=== PATIENT | female | born 1930 | race Caucasian/White ===

== ENCOUNTER 2018-07-25 23:15 | Inpatient (IN) | payer MEDICARE, OTHER ==
[2018-07-26] MEDS: ALBUTEROL 0.083% (NEB) 2.5 MG/3 ML AMP HHN ×3 (00:22→19:24)
[2018-07-26] MEDS: IPRATROPIUM (NEB) 0.5 MG/2.5 ML AMP INH (00:22)
[2018-07-26 00:34] LABS: ADD MAN DIFF? NO
[2018-07-26 00:37] LABS: WHITE BLOOD COUNT 6.2 10^3/ul (4.8-10.8)
[2018-07-26 00:37] LABS: BASOPHILS % 0.3 % (0.0-2.0); EOSINOPHILS # 0.4 10^3/ul (0.0-0.5); EOSINOPHILS % 6.5 % (0.0-7.0); HEMATOCRIT 39.7 % (37.0-47.0); HEMOGLOBIN 12.4 g/dl (12.0-16.0); LYMPHOCYTES # 0.7 10^3/ul (0.8-2.9); MEAN CORPUSCULAR HEMOGLOBIN 29.9 pg (29.0-33.0); MEAN CORPUSCULAR HGB CONC 31.2 g/dl (32.0-37.0); MEAN CORPUSCULAR VOLUME 95.7 fl (82.0-101.0); MONOCYTE # 0.7 10^3/ul (0.3-0.9); MONOCYTES % 10.5 % (0.0-11.0); NEUTROPHIL # 4.4 10^3/ul (1.6-7.5); NEUTROPHILS % 71.5 % (39.0-77.0); PLATELET COUNT 129 10^3/UL (140-415); RED BLOOD COUNT 4.15 10^6/ul (4.20-5.40); RED CELL DISTRIBUTION WIDTH 13.2 % (11.5-14.5)
[2018-07-26 00:47] LABS: ALANINE AMINOTRANSFERASE 16 IU/L (13-69); ALBUMIN 4.1 g/dl (3.3-4.9); ALBUMIN/GLOBULIN RATIO 1.28; ALKALINE PHOSPHATASE 58 IU/L (42-121); ANION GAP 8 (5-13); ASPARTATE AMINO TRANSFERASE 22 IU/L (15-46); BILIRUBIN,INDIRECT 0.4 mg/dl (0-1.1); BILIRUBIN,TOTAL 0.4 mg/dl (0.2-1.3); BLOOD UREA NITROGEN 21 mg/dl (7-20); CALCIUM 9.6 mg/dl (8.4-10.2); CARBON DIOXIDE 25 mmol/L (21-31); CHLORIDE 107 mmol/L (97-110); CREATININE 1.05 mg/dl (0.44-1.00); GLUCOSE 144 mg/dl (70-220); POTASSIUM 4.9 mmol/L (3.5-5.1); SODIUM 140 mmol/L (135-144); TOTAL PROTEIN 7.3 g/dl (6.1-8.1)
[2018-07-26 00:58] LABS: B-TYPE NATRIURETIC PEPTIDE 177 PG/ML (0-450); TROPONIN-I < 0.012 ng/ml (0.000-0.120)
[2018-07-26 02:47] LABS: LACTIC ACID 0.7 mmol/L (0.5-2.0)
[2018-07-26] MEDS: METHYLPREDNISOLONE 125 MG INJ IM (03:00)
[2018-07-26 05:02] LABS: LACTIC ACID 0.8 mmol/L (0.5-2.0)
[2018-07-26] MEDS ORDERED: ACETAMINOPHEN 325 MG TAB PO (06:00)
[2018-07-26] MEDS ORDERED: ONDANSETRON 4 MG INJ IV (06:00)
[2018-07-26] MEDS ORDERED: HYDROCODONE/APAP (5/325) TAB PO ×2 (06:00)
[2018-07-26] MEDS ORDERED: NACL 0.9% 3 ML SYG IV (06:00)
[2018-07-26] MEDS: SPIRONOLACTONE 25 MG TAB PO (08:46)
[2018-07-26] MEDS: METHYLPREDNISOLONE 125 MG INJ IV ×2 (08:46→21:48)
[2018-07-26] MEDS: BENAZEPRIL 10 MG TAB PO (08:46)
[2018-07-26] MEDS: ASPIRIN 81 MG TAB PO (08:47)
[2018-07-26] MEDS: HEPARIN 5,000 UNIT/1 ML VIAL SC ×2 (08:47→20:35)
[2018-07-26] MEDS: MOMETASONE 0.24 GM INHALER INH ×2 (14:56→21:48)
[2018-07-26] MEDS ORDERED: GLUCOSE GEL 15 GRAM TUBE PO ×2 (16:00)
[2018-07-26] MEDS ORDERED: DEXTROSE 50% 50 ML SYRINGE IV ×2 (16:00)
[2018-07-26] MEDS ORDERED: GLUCAGON 1 MG INJ IM (16:00)
[2018-07-26] MEDS ORDERED: GLUCOSE GEL 15 GRAM TUBE BUCCAL (16:00)
[2018-07-26] MEDS: INSULIN ASPART [NOVOLOG] 3 ML PEN SC (17:46)
[2018-07-26] MEDS: FAMOTIDINE 20 MG TAB PO (20:35)
[2018-07-26] MEDS: ATORVASTATIN 10 MG TAB PO (20:35)
[2018-07-26] MEDS ORDERED: NON-FORMULARY/PATIENT OWN MED (Simvastatin 20 MG) PO (21:00)
[2018-07-26] MEDS: INSULIN GLARGINE [LANTus] (100 UNITS/ML) SYG SC (21:48)
[2018-07-27] MEDS: ALBUTEROL 0.083% (NEB) 2.5 MG/3 ML AMP HHN ×4 (02:00→23:32)
[2018-07-27] MEDS: METHYLPREDNISOLONE 125 MG INJ IV ×3 (04:40→20:14)
[2018-07-27] MEDS: ALBUTEROL/IPRATROPIUM (NEB) 3 ML AMP HHN (06:05)
[2018-07-27 06:09] LABS: ADD MAN DIFF? NO
[2018-07-27 06:16] LABS: WHITE BLOOD COUNT 8.3 10^3/ul (4.8-10.8)
[2018-07-27 06:16] LABS: BASOPHILS % 0.2 % (0.0-2.0); HEMATOCRIT 40.3 % (37.0-47.0); HEMOGLOBIN 12.5 g/dl (12.0-16.0); LYMPHOCYTES # 1.2 10^3/ul (0.8-2.9); LYMPHOCYTES % 13.9 % (15.0-51.0); MEAN CORPUSCULAR HEMOGLOBIN 29.4 pg (29.0-33.0); MEAN CORPUSCULAR VOLUME 94.8 fl (82.0-101.0); MEAN PLATELET VOLUME 12.3 fl (7.4-10.4); MONOCYTE # 0.3 10^3/ul (0.3-0.9); MONOCYTES % 3.5 % (0.0-11.0); NEUTROPHIL # 6.8 10^3/ul (1.6-7.5); PLATELET COUNT 137 10^3/UL (140-415); RED BLOOD COUNT 4.25 10^6/ul (4.20-5.40); RED CELL DISTRIBUTION WIDTH 13.4 % (11.5-14.5)
[2018-07-27 06:36] LABS: INR 1.03; PROTIME 13.6 Sec (11.9-14.9); PT RATIO 1.1
[2018-07-27 06:40] LABS: PHOSPHORUS 3.9 mg/dl (2.5-4.9)
[2018-07-27 06:45] LABS: CREATINE KINASE 178 IU/L (23-200)
[2018-07-27 06:48] LABS: HEMOGLOBIN A1C 6.8 % (0-5.9)
[2018-07-27 06:50] LABS: TROPONIN-I < 0.012 ng/ml (0.000-0.120)
[2018-07-27 06:54] LABS: ALANINE AMINOTRANSFERASE 17 IU/L (13-69); ALBUMIN 3.9 g/dl (3.3-4.9); ALBUMIN/GLOBULIN RATIO 1.25; ALKALINE PHOSPHATASE 55 IU/L (42-121); ANION GAP 9 (5-13); ASPARTATE AMINO TRANSFERASE 21 IU/L (15-46); BILIRUBIN,INDIRECT 0.3 mg/dl (0-1.1); BILIRUBIN,TOTAL 0.3 mg/dl (0.2-1.3); BLOOD UREA NITROGEN 29 mg/dl (7-20); CALCIUM 9.4 mg/dl (8.4-10.2); CARBON DIOXIDE 25 mmol/L (21-31); CHLORIDE 106 mmol/L (97-110); CHOL/HDL RATIO 4.8 RATIO; CHOLESTEROL 183 mg/dl (100-200); CREATININE 1.01 mg/dl (0.44-1.00); GLUCOSE 304 mg/dl (70-220); HDL CHOLESTEROL 38 mg/dl (33-92); LDL CHOLESTEROL,CALCULATED 120 mg/dl; MAGNESIUM 1.7 mg/dl (1.7-2.5); POTASSIUM 4.9 mmol/L (3.5-5.1); SODIUM 140 mmol/L (135-144); TRIGLYCERIDES 126 mg/dl (0-149)
[2018-07-27 06:56] LABS: CK INDEX 2.3; CK-MB 4.11 ng/ml (0.0-2.4); TROPONIN-I < 0.012 ng/ml (0.000-0.120)
[2018-07-27 07:17] LABS: THYROID STIMULATING HORMONE 0.717 MIU/L (0.465-4.680)
[2018-07-27] MEDS: INSULIN ASPART [NOVOLOG] 3 ML PEN SC ×3 (07:44→17:40)
[2018-07-27] MEDS: MOMETASONE 0.24 GM INHALER INH ×2 (08:25→20:14)
[2018-07-27] MEDS: ASPIRIN 81 MG TAB PO (08:27)
[2018-07-27] MEDS: BENAZEPRIL 10 MG TAB PO (08:27)
[2018-07-27] MEDS: HEPARIN 5,000 UNIT/1 ML VIAL SC ×2 (08:28→20:14)
[2018-07-27] MEDS: ISOSORBIDE MONONITRATE(SR)30 MG TAB PO (10:26)
[2018-07-27] MEDS: FUROSEMIDE 40 MG INJ IV (10:27)
[2018-07-27 12:47] LABS: CREATINE KINASE 206 IU/L (23-200)
[2018-07-27 13:00] LABS: CK INDEX 2.5; CK-MB 5.19 ng/ml (0.0-2.4); TROPONIN-I < 0.012 ng/ml (0.000-0.120)
[2018-07-27] MEDS ORDERED: SENNA/DOCUSATE NA (8.6MG/50MG) TAB PO (17:00)
[2018-07-27] MEDS: FUROSEMIDE 20 MG INJ IV (17:35)
[2018-07-27 18:24] LABS: CREATINE KINASE 203 IU/L (23-200)
[2018-07-27 18:36] LABS: CK INDEX 2.5; CK-MB 4.99 ng/ml (0.0-2.4); TROPONIN-I < 0.012 ng/ml (0.000-0.120)
[2018-07-27] MEDS: ATORVASTATIN 10 MG TAB PO (20:12)
[2018-07-27] MEDS: FAMOTIDINE 20 MG TAB PO (20:12)
[2018-07-27] MEDS: INSULIN GLARGINE [LANTus] (100 UNITS/ML) SYG SC (20:16)
[2018-07-28 06:23] LABS: ADD MAN DIFF? NO
[2018-07-28 06:30] LABS: BASOPHILS % 0.1 % (0.0-2.0); HEMATOCRIT 38.3 % (37.0-47.0); HEMOGLOBIN 11.9 g/dl (12.0-16.0); LYMPHOCYTES # 1.4 10^3/ul (0.8-2.9); LYMPHOCYTES % 10.8 % (15.0-51.0); MEAN CORPUSCULAR HEMOGLOBIN 29.5 pg (29.0-33.0); MEAN CORPUSCULAR HGB CONC 31.1 g/dl (32.0-37.0); MEAN CORPUSCULAR VOLUME 94.8 fl (82.0-101.0); MEAN PLATELET VOLUME 12.4 fl (7.4-10.4); MONOCYTE # 0.9 10^3/ul (0.3-0.9); MONOCYTES % 6.7 % (0.0-11.0); NEUTROPHIL # 10.7 10^3/ul (1.6-7.5); NEUTROPHILS % 81.9 % (39.0-77.0); PLATELET COUNT 139 10^3/UL (140-415); RED BLOOD COUNT 4.04 10^6/ul (4.20-5.40); RED CELL DISTRIBUTION WIDTH 13.2 % (11.5-14.5)
[2018-07-28 07:04] LABS: ANION GAP 9 (5-13); BLOOD UREA NITROGEN 61 mg/dl (7-20); CALCIUM 9.5 mg/dl (8.4-10.2); CARBON DIOXIDE 28 mmol/L (21-31); CHLORIDE 103 mmol/L (97-110); CREATININE 1.66 mg/dl (0.44-1.00); GLUCOSE 249 mg/dl (70-220); SODIUM 140 mmol/L (135-144)
[2018-07-28 07:05] LABS: PHOSPHORUS 4.2 mg/dl (2.5-4.9)
[2018-07-28 07:05] LABS: MAGNESIUM 1.9 mg/dl (1.7-2.5)
[2018-07-28 07:18] LABS: POTASSIUM 5.2 mmol/L (3.5-5.1)
[2018-07-28] MEDS: INSULIN ASPART [NOVOLOG] 3 ML PEN SC ×3 (08:01→17:21)
[2018-07-28] MEDS: MOMETASONE 0.24 GM INHALER INH ×2 (08:32→20:28)
[2018-07-28] MEDS: METHYLPREDNISOLONE 125 MG INJ IV (08:34)
[2018-07-28] MEDS: ASPIRIN 81 MG TAB PO (08:35)
[2018-07-28] MEDS: ISOSORBIDE MONONITRATE(SR)30 MG TAB PO (08:35)
[2018-07-28] MEDS: BENAZEPRIL 10 MG TAB PO (08:36)
[2018-07-28] MEDS: HEPARIN 5,000 UNIT/1 ML VIAL SC ×2 (08:37→20:28)
[2018-07-28] MEDS: ALBUTEROL 0.083% (NEB) 2.5 MG/3 ML AMP HHN ×2 (09:42→15:33)
[2018-07-28] MEDS: FUROSEMIDE 20 MG INJ IV (12:15)
[2018-07-28] MEDS: MAGNESIUM SULFATE 2 GM/50 ML 50 ML IVPB (16:15)
[2018-07-28] MEDS: METOPROLOL 25 MG TAB PO (20:28)
[2018-07-28] MEDS: FAMOTIDINE 20 MG TAB PO (20:28)
[2018-07-28] MEDS: ATORVASTATIN 10 MG TAB PO (20:28)
[2018-07-28] MEDS: ALBUTEROL/IPRATROPIUM (NEB) 3 ML AMP HHN (20:34)
[2018-07-28] MEDS: INSULIN GLARGINE [LANTus] (100 UNITS/ML) SYG SC (20:50)
[2018-07-29] MEDS: ALBUTEROL/IPRATROPIUM (NEB) 3 ML AMP HHN ×6 (01:16→21:12)
[2018-07-29 06:27] LABS: ADD MAN DIFF? NO
[2018-07-29 06:37] LABS: BASOPHILS % 0.1 % (0.0-2.0); HEMATOCRIT 36.4 % (37.0-47.0); HEMOGLOBIN 11.6 g/dl (12.0-16.0); LYMPHOCYTES # 1.4 10^3/ul (0.8-2.9); LYMPHOCYTES % 11.8 % (15.0-51.0); MEAN CORPUSCULAR HEMOGLOBIN 29.7 pg (29.0-33.0); MEAN CORPUSCULAR HGB CONC 31.9 g/dl (32.0-37.0); MEAN CORPUSCULAR VOLUME 93.1 fl (82.0-101.0); MEAN PLATELET VOLUME 12.4 fl (7.4-10.4); MONOCYTE # 0.9 10^3/ul (0.3-0.9); MONOCYTES % 7.2 % (0.0-11.0); NEUTROPHIL # 9.7 10^3/ul (1.6-7.5); NEUTROPHILS % 80.4 % (39.0-77.0); PLATELET COUNT 146 10^3/UL (140-415); RED BLOOD COUNT 3.91 10^6/ul (4.20-5.40); RED CELL DISTRIBUTION WIDTH 13.3 % (11.5-14.5)
[2018-07-29 06:37] LABS: WHITE BLOOD COUNT 12.1 10^3/ul (4.8-10.8)
[2018-07-29 07:17] LABS: ANION GAP 9 (5-13); BLOOD UREA NITROGEN 62 mg/dl (7-20); CALCIUM 9.3 mg/dl (8.4-10.2); CARBON DIOXIDE 27 mmol/L (21-31); CHLORIDE 102 mmol/L (97-110); CREATININE 1.35 mg/dl (0.44-1.00); GLUCOSE 236 mg/dl (70-220); POTASSIUM 4.9 mmol/L (3.5-5.1); SODIUM 138 mmol/L (135-144)
[2018-07-29 07:18] LABS: MAGNESIUM 2.3 mg/dl (1.7-2.5)
[2018-07-29] MEDS: INSULIN ASPART [NOVOLOG] 3 ML PEN SC ×3 (07:51→17:30)
[2018-07-29] MEDS: ISOSORBIDE MONONITRATE(SR)30 MG TAB PO (08:14)
[2018-07-29] MEDS: ASPIRIN 81 MG TAB PO (08:14)
[2018-07-29] MEDS: METOPROLOL 25 MG TAB PO ×2 (08:15→20:21)
[2018-07-29] MEDS: MOMETASONE 0.24 GM INHALER INH ×2 (08:16→20:22)
[2018-07-29] MEDS: HEPARIN 5,000 UNIT/1 ML VIAL SC ×2 (09:00→20:22)
[2018-07-29] MEDS: FUROSEMIDE 20 MG INJ IV ×2 (12:00→18:31)
[2018-07-29] MEDS: FAMOTIDINE 20 MG TAB PO (20:21)
[2018-07-29] MEDS: ATORVASTATIN 10 MG TAB PO (20:21)
[2018-07-29] MEDS: INSULIN GLARGINE [LANTus] (100 UNITS/ML) SYG SC (20:59)
[2018-07-30] MEDS: ALBUTEROL/IPRATROPIUM (NEB) 3 ML AMP HHN ×6 (01:27→20:33)
[2018-07-30 05:18] LABS: ADD MAN DIFF? NO
[2018-07-30 05:26] LABS: WHITE BLOOD COUNT 8.2 10^3/ul (4.8-10.8)
[2018-07-30 05:26] LABS: BASOPHILS % 0.1 % (0.0-2.0); EOSINOPHILS # 0.2 10^3/ul (0.0-0.5); EOSINOPHILS % 2.6 % (0.0-7.0); HEMATOCRIT 36.4 % (37.0-47.0); HEMOGLOBIN 11.5 g/dl (12.0-16.0); LYMPHOCYTES # 2.2 10^3/ul (0.8-2.9); LYMPHOCYTES % 27.1 % (15.0-51.0); MEAN CORPUSCULAR HEMOGLOBIN 29.8 pg (29.0-33.0); MEAN CORPUSCULAR HGB CONC 31.6 g/dl (32.0-37.0); MEAN CORPUSCULAR VOLUME 94.3 fl (82.0-101.0); MEAN PLATELET VOLUME 11.9 fl (7.4-10.4); MONOCYTES % 12.5 % (0.0-11.0); NEUTROPHIL # 4.7 10^3/ul (1.6-7.5); NEUTROPHILS % 57.1 % (39.0-77.0); PLATELET COUNT 132 10^3/UL (140-415); RED BLOOD COUNT 3.86 10^6/ul (4.20-5.40); RED CELL DISTRIBUTION WIDTH 13.3 % (11.5-14.5)
[2018-07-30 05:55] LABS: ANION GAP 6 (5-13); BLOOD UREA NITROGEN 59 mg/dl (7-20); CALCIUM 9.1 mg/dl (8.4-10.2); CARBON DIOXIDE 32 mmol/L (21-31); CHLORIDE 104 mmol/L (97-110); GLUCOSE 62 mg/dl (70-220); POTASSIUM 4.5 mmol/L (3.5-5.1); SODIUM 142 mmol/L (135-144)
[2018-07-30 05:57] LABS: MAGNESIUM 2.1 mg/dl (1.7-2.5)
[2018-07-30] MEDS: INSULIN ASPART [NOVOLOG] 3 ML PEN SC ×3 (07:00→17:38)
[2018-07-30] MEDS: HEPARIN 5,000 UNIT/1 ML VIAL SC ×2 (09:00→20:17)
[2018-07-30] MEDS: ASPIRIN 81 MG TAB PO (09:58)
[2018-07-30] MEDS: METOPROLOL 25 MG TAB PO ×2 (09:58→20:24)
[2018-07-30] MEDS: ISOSORBIDE MONONITRATE(SR)30 MG TAB PO (09:58)
[2018-07-30] MEDS: BARIUM SULFATE 135 ML (E-Z HD) PO (11:13)
[2018-07-30] MEDS: MOMETASONE 0.24 GM INHALER INH ×2 (13:54→21:05)
[2018-07-30] MEDS: AZITHROMYCIN 250 MG TAB PO (14:31)
[2018-07-30] MEDS: ATORVASTATIN 10 MG TAB PO (20:17)
[2018-07-30] MEDS: FAMOTIDINE 20 MG TAB PO (20:19)
[2018-07-30] MEDS: INSULIN GLARGINE [LANTus] (100 UNITS/ML) SYG SC (20:37)
[2018-07-30] MEDS: METHYLPREDNISOLONE 40 MG INJ IV (21:05)
[2018-07-31] MEDS: ALBUTEROL/IPRATROPIUM (NEB) 3 ML AMP HHN ×4 (01:22→12:37)
[2018-07-31] MEDS: METHYLPREDNISOLONE 40 MG INJ IV ×2 (05:46→13:57)
[2018-07-31 06:21] LABS: ADD MAN DIFF? NO
[2018-07-31 06:25] LABS: BASOPHILS % 0.3 % (0.0-2.0); HEMATOCRIT 39.2 % (37.0-47.0); HEMOGLOBIN 12.3 g/dl (12.0-16.0); LYMPHOCYTES # 1.1 10^3/ul (0.8-2.9); LYMPHOCYTES % 13.7 % (15.0-51.0); MEAN CORPUSCULAR HEMOGLOBIN 29.7 pg (29.0-33.0); MEAN CORPUSCULAR HGB CONC 31.4 g/dl (32.0-37.0); MEAN CORPUSCULAR VOLUME 94.7 fl (82.0-101.0); MEAN PLATELET VOLUME 12.2 fl (7.4-10.4); MONOCYTE # 0.2 10^3/ul (0.3-0.9); MONOCYTES % 2.1 % (0.0-11.0); NEUTROPHIL # 6.4 10^3/ul (1.6-7.5); NEUTROPHILS % 83.1 % (39.0-77.0); PLATELET COUNT 152 10^3/UL (140-415); RED BLOOD COUNT 4.14 10^6/ul (4.20-5.40); RED CELL DISTRIBUTION WIDTH 13.2 % (11.5-14.5)
[2018-07-31 06:25] LABS: WHITE BLOOD COUNT 7.6 10^3/ul (4.8-10.8)
[2018-07-31 06:56] LABS: MAGNESIUM 2.1 mg/dl (1.7-2.5)
[2018-07-31 06:56] LABS: PHOSPHORUS 4.1 mg/dl (2.5-4.9)
[2018-07-31 07:00] LABS: ANION GAP 7 (5-13); BLOOD UREA NITROGEN 49 mg/dl (7-20); CALCIUM 9.5 mg/dl (8.4-10.2); CARBON DIOXIDE 29 mmol/L (21-31); CHLORIDE 103 mmol/L (97-110); CREATININE 1.28 mg/dl (0.44-1.00); GLUCOSE 286 mg/dl (70-220); SODIUM 139 mmol/L (135-144)
[2018-07-31 07:12] LABS: POTASSIUM 5.8 mmol/L (3.5-5.1)
[2018-07-31] MEDS: INSULIN ASPART [NOVOLOG] 3 ML PEN SC ×3 (08:08→12:07)
[2018-07-31] MEDS: AZITHROMYCIN 250 MG TAB PO (08:15)
[2018-07-31] MEDS: ASPIRIN 81 MG TAB PO (08:15)
[2018-07-31] MEDS: FUROSEMIDE 20 MG TAB PO (08:16)
[2018-07-31] MEDS: ISOSORBIDE MONONITRATE(SR)30 MG TAB PO (08:16)
[2018-07-31] MEDS: METOPROLOL 25 MG TAB PO (08:17)
[2018-07-31] MEDS: HEPARIN 5,000 UNIT/1 ML VIAL SC (08:17)
[2018-07-31] MEDS: MOMETASONE 0.24 GM INHALER INH (08:18)
[2018-07-31] MEDS: SODIUM POLYSTYRENE 15 GM KIT (POWDER + SORBITOL) PO ×3 (08:30→10:14)
[2018-07-31 10:07] LABS: POTASSIUM 5.5 mmol/L (3.5-5.1)
[2018-07-31 13:25] LABS: POTASSIUM 5.2 mmol/L (3.5-5.1)
== END 2018-07-31 15:57 | disposition home or self-care (01) | DRG 291 ==
LOC: 6WM 07-28 20:11 → WCC 23:15 → 6WM 07-26 02:41
DX: I11.0 Hypertensive heart disease with heart failure (principal); J96.01 Acute respiratory failure with hypoxia; K85.90 Acute pancreatitis without necrosis or infection, unspecified; Z68.41 Body mass index [BMI] 40.0-44.9, adult; N17.9 Acute kidney failure, unspecified; J44.0 Chronic obstructive pulmonary disease with (acute) lower respiratory infection; J44.1 Chronic obstructive pulmonary disease with (acute) exacerbation; I50.33 Acute on chronic diastolic (congestive) heart failure; E66.9 Obesity, unspecified; J20.9 Acute bronchitis, unspecified; Z71.3 Dietary counseling and surveillance; D69.6 Thrombocytopenia, unspecified; E10.9 Type 1 diabetes mellitus without complications; E88.81 Metabolic syndrome and other insulin resistance; I27.81 Cor pulmonale (chronic); E78.5 Hyperlipidemia, unspecified; I25.10 Atherosclerotic heart disease of native coronary artery without angina pectoris; Z79.4 Long term (current) use of insulin; Z79.01 Long term (current) use of anticoagulants
CPT/HCPCS: 71045; 71250; 74230; 80048; 80053; 80061; 82550; 82553; 82962; 83036; 83605; 83735; 83880; 84100; 84132; 84443; 84484; 85025; 85610; 87040-91; 92610; 92611; 93005; 93306; 94640; 94664

== ENCOUNTER 2018-08-02 23:04 | Emergency (ER) | payer MEDICARE, OTHER | END 2018-08-03 00:14 | disposition home or self-care (01) | LOC: E/R 08-03 00:14 | DX: T44.7X1A Poisoning by beta-adrenoreceptor antagonists, accidental (unintentional), initial encounter (principal); I11.0 Hypertensive heart disease with heart failure; I50.9 Heart failure, unspecified; E11.9 Type 2 diabetes mellitus without complications; J44.9 Chronic obstructive pulmonary disease, unspecified; Z79.4 Long term (current) use of insulin; Z79.82 Long term (current) use of aspirin | CPT/HCPCS: 93005; 99283-25 ==

== ENCOUNTER 2018-11-08 03:34 | Observation (INO) | payer MEDICARE, OTHER ==
[2018-11-08] MEDS ORDERED: DILTIAZEM 25 MG INJ (03:50)
[2018-11-08 03:59] LABS: ADD MAN DIFF? NO
[2018-11-08] MEDS: SOD CHLORIDE 0.9% 500 ML IV (04:05)
[2018-11-08 04:06] LABS: WHITE BLOOD COUNT 6.3 10^3/ul (4.8-10.8)
[2018-11-08 04:06] LABS: BASOPHILS % 0.5 % (0.0-2.0); EOSINOPHILS # 0.5 10^3/ul (0.0-0.5); EOSINOPHILS % 8.4 % (0.0-7.0); HEMATOCRIT 38.7 % (37.0-47.0); HEMOGLOBIN 12.1 g/dl (12.0-16.0); LYMPHOCYTES # 2.1 10^3/ul (0.8-2.9); LYMPHOCYTES % 32.7 % (15.0-51.0); MEAN CORPUSCULAR HGB CONC 31.3 g/dl (32.0-37.0); MEAN CORPUSCULAR VOLUME 95.8 fl (82.0-101.0); MEAN PLATELET VOLUME 11.8 fl (7.4-10.4); MONOCYTE # 0.8 10^3/ul (0.3-0.9); MONOCYTES % 12.2 % (0.0-11.0); NEUTROPHIL # 2.9 10^3/ul (1.6-7.5); PLATELET COUNT 131 10^3/UL (140-415); RED BLOOD COUNT 4.04 10^6/ul (4.20-5.40); RED CELL DISTRIBUTION WIDTH 13.6 % (11.5-14.5)
[2018-11-08] MEDS: DILTIAZEM 25 MG INJ IV ×2 (04:06→04:33)
[2018-11-08 04:23] LABS: ALANINE AMINOTRANSFERASE 22 IU/L (13-69); ALBUMIN 3.8 g/dl (3.3-4.9); ALBUMIN/GLOBULIN RATIO 1.18; ALKALINE PHOSPHATASE 63 IU/L (42-121); ANION GAP 7 (5-13); ASPARTATE AMINO TRANSFERASE 27 IU/L (15-46); BILIRUBIN,INDIRECT 0.4 mg/dl (0-1.1); BILIRUBIN,TOTAL 0.4 mg/dl (0.2-1.3); BLOOD UREA NITROGEN 33 mg/dl (7-20); CALCIUM 9.4 mg/dl (8.4-10.2); CARBON DIOXIDE 30 mmol/L (21-31); CHLORIDE 106 mmol/L (97-110); CREATININE 1.19 mg/dl (0.44-1.00); GLUCOSE 147 mg/dl (70-220); POTASSIUM 3.5 mmol/L (3.5-5.1); SODIUM 143 mmol/L (135-144)
[2018-11-08 04:35] LABS: B-TYPE NATRIURETIC PEPTIDE 195 PG/ML (0-450); TROPONIN-I 0.028 ng/ml (0.000-0.120)
[2018-11-08] MEDS ORDERED: DOCUSATE SODIUM 100 MG CAP PO (05:00)
[2018-11-08] MEDS ORDERED: NACL 0.9% 3 ML SYG IV (05:00)
[2018-11-08] MEDS ORDERED: ACETAMINOPHEN 325 MG TAB PO (05:00)
[2018-11-08] MEDS ORDERED: NITROGLYCERIN (SL) 0.4 MG TAB SL (05:00)
[2018-11-08] MEDS ORDERED: morphine 2 MG INJ IV (05:00)
[2018-11-08] MEDS ORDERED: ONDANSETRON 4 MG INJ IV (05:00)
[2018-11-08] MEDS: POTASSIUM CHLORIDE (SR) 20 MEQ TAB PO (05:05)
[2018-11-08] MEDS: MAGNESIUM SULFATE 2 GM/50 ML 50 ML IVPB (05:05)
[2018-11-08] MEDS: DIPHENHYDRAMINE 50 MG INJ IV (05:28)
[2018-11-08] MEDS ORDERED: BISACODYL (EC) 5 MG TAB PO (06:00)
[2018-11-08 06:14] LABS: MAGNESIUM 1.9 mg/dl (1.7-2.5)
[2018-11-08] MEDS: METOPROLOL 25 MG TAB PO ×2 (06:32→18:45)
[2018-11-08] MEDS: INSULIN REGULAR, HUMAN 100 UNIT/1 ML 3ML VIAL SC (06:48)
[2018-11-08] MEDS: INSULIN ASPART [NOVOLOG] 3 ML PEN SC ×5 (07:55→21:00)
[2018-11-08] MEDS ORDERED: DILTIAZEM 60 MG TAB PO (08:00)
[2018-11-08] MEDS ORDERED: ISOSORBIDE MONONITRATE(SR)30 MG TAB PO (09:00)
[2018-11-08] MEDS ORDERED: SPIRONOLACTONE 25 MG TAB PO (09:00)
[2018-11-08] MEDS ORDERED: ASPIRIN (EC) 81 MG TAB PO (09:00)
[2018-11-08] MEDS: MOMETASONE 0.24 GM INHALER INH ×2 (09:00→23:32)
[2018-11-08] MEDS ORDERED: ASPIRIN 81 MG TAB PO (09:00)
[2018-11-08] MEDS ORDERED: BUDESONIDE INHALATION (09:00)
[2018-11-08] MEDS: METOPROLOL 5 MG INJ IV (09:03)
[2018-11-08] MEDS: DOCUSATE SODIUM 100 MG CAP PO (09:04)
[2018-11-08] MEDS: APIXABAN 5 MG TABLET PO (09:04)
[2018-11-08 09:26] LABS: CREATINE KINASE 427 IU/L (23-200)
[2018-11-08 09:38] LABS: CK INDEX 5.6
[2018-11-08] MEDS ORDERED: AMIODARONE 900 MG in DEXTROSE 5% 482 ML IV (10:30)
[2018-11-08 11:52] LABS: INR 1.07; PT RATIO 1.1
[2018-11-08 11:53] LABS: PARTIAL THROMBOPLASTIN TIME 33.6 Sec (23.0-35.0)
[2018-11-08] MEDS: AMIODARONE 150MG/D5W BOLUS 100 ML IV (12:30)
[2018-11-08] MEDS: AMIODARONE 900 MG in DEXTROSE 5% 482 ML IV ×2 (12:54→14:06)
[2018-11-08] MEDS: METOPROLOL 50 MG TAB PO (14:12)
[2018-11-08] MEDS: ISOSORBIDE MONONITRATE(SR)30 MG TAB PO (14:13)
[2018-11-08] MEDS: FUROSEMIDE 20 MG INJ IV ×2 (14:13→18:44)
[2018-11-08] MEDS: BISACODYL (EC) 5 MG TAB PO (14:13)
[2018-11-08] MEDS: ASPIRIN 81 MG TAB PO (14:15)
[2018-11-08 14:42] LABS: CREATINE KINASE 465 IU/L (23-200)
[2018-11-08 14:55] LABS: CK INDEX 5.7
[2018-11-08] MEDS ORDERED: HEPARIN 1000 UNITS/ML 10 ML INJ IV ×3 (16:30→21:00)
[2018-11-08] MEDS: HEPARIN 1000 UNITS/ML 10 ML INJ IV (17:54)
[2018-11-08] MEDS: HEPARIN 25000 UNITS/250 ML 250 ML IV (17:54)
[2018-11-08] MEDS ORDERED: HEPARIN 25000 UNITS/250 ML 250 ML IV (21:00)
[2018-11-08] MEDS: ATORVASTATIN 20 MG TAB PO (21:06)
[2018-11-09 01:20] LABS: PARTIAL THROMBOPLASTIN TIME 151.6 Sec (23.0-35.0)
[2018-11-09] MEDS: ACCU-CHEK XX (01:55)
[2018-11-09] MEDS: METOPROLOL 25 MG TAB PO (02:43)
[2018-11-09 07:13] LABS: ADD MAN DIFF? NO
[2018-11-09 07:19] LABS: BASOPHILS % 0.6 % (0.0-2.0); EOSINOPHILS # 0.5 10^3/ul (0.0-0.5); EOSINOPHILS % 7.6 % (0.0-7.0); LYMPHOCYTES # 1.9 10^3/ul (0.8-2.9); LYMPHOCYTES % 27.4 % (15.0-51.0); MEAN CORPUSCULAR HEMOGLOBIN 29.9 pg (29.0-33.0); MEAN CORPUSCULAR VOLUME 96.6 fl (82.0-101.0); MEAN PLATELET VOLUME 12.3 fl (7.4-10.4); MONOCYTE # 0.8 10^3/ul (0.3-0.9); MONOCYTES % 11.3 % (0.0-11.0); NEUTROPHIL # 3.6 10^3/ul (1.6-7.5); PLATELET COUNT 140 10^3/UL (140-415); RED BLOOD COUNT 4.35 10^6/ul (4.20-5.40); RED CELL DISTRIBUTION WIDTH 13.7 % (11.5-14.5)
[2018-11-09 07:19] LABS: WHITE BLOOD COUNT 6.8 10^3/ul (4.8-10.8)
[2018-11-09] MEDS: INSULIN ASPART [NOVOLOG] 3 ML PEN SC ×2 (07:25→07:55)
[2018-11-09 07:40] LABS: ALANINE AMINOTRANSFERASE 21 IU/L (13-69); ALBUMIN 3.8 g/dl (3.3-4.9); ALBUMIN/GLOBULIN RATIO 1.26; ALKALINE PHOSPHATASE 57 IU/L (42-121); ANION GAP 7 (5-13); ASPARTATE AMINO TRANSFERASE 50 IU/L (15-46); BILIRUBIN,INDIRECT 0.8 mg/dl (0-1.1); BILIRUBIN,TOTAL 0.8 mg/dl (0.2-1.3); BLOOD UREA NITROGEN 30 mg/dl (7-20); CALCIUM 9.6 mg/dl (8.4-10.2); CARBON DIOXIDE 28 mmol/L (21-31); CHLORIDE 105 mmol/L (97-110); CHOL/HDL RATIO 3.6 RATIO; CHOLESTEROL 195 mg/dl (100-200); CREATININE 1.28 mg/dl (0.44-1.00); GLUCOSE 152 mg/dl (70-220); HDL CHOLESTEROL 53 mg/dl (33-92); LDL CHOLESTEROL,CALCULATED 122 mg/dl; SODIUM 140 mmol/L (135-144); TOTAL PROTEIN 6.8 g/dl (6.1-8.1); TRIGLYCERIDES 99 mg/dl (0-149)
[2018-11-09 07:44] LABS: HEMOGLOBIN A1C 6.3 % (0-5.9)
[2018-11-09 07:50] LABS: PARTIAL THROMBOPLASTIN TIME 75.6 Sec (23.0-35.0)
[2018-11-09 08:24] LABS: MAGNESIUM 1.9 mg/dl (1.7-2.5)
[2018-11-09] MEDS: FAMOTIDINE 20 MG TAB PO (08:25)
[2018-11-09] MEDS: ISOSORBIDE MONONITRATE(SR)30 MG TAB PO (08:26)
[2018-11-09] MEDS: ASPIRIN 81 MG TAB PO (08:26)
[2018-11-09] MEDS: DOCUSATE SODIUM 100 MG CAP PO (08:27)
[2018-11-09] MEDS: MOMETASONE 0.24 GM INHALER INH (09:00)
[2018-11-09] MEDS ORDERED: METOPROLOL 50 MG TAB PO (10:30)
== END 2018-11-09 09:27 | disposition other institution (70) ==
LOC: E/R 03:34 → TEL 04:44
DX: I48.91 Unspecified atrial fibrillation (principal); R07.9 Chest pain, unspecified; I13.0 Hypertensive heart and chronic kidney disease with heart failure and stage 1 through stage 4 chronic kidney disease, or unspecified chronic kidney disease; E11.22 Type 2 diabetes mellitus with diabetic chronic kidney disease; N18.9 Chronic kidney disease, unspecified; I50.33 Acute on chronic diastolic (congestive) heart failure; J44.9 Chronic obstructive pulmonary disease, unspecified; Z79.82 Long term (current) use of aspirin
CPT/HCPCS: 36415; 71045; 80053; 80061; 82550; 82553; 82962; 83036; 83735; 83880; 84443; 84484; 85025; 85610; 85730; 93005; 93306; 96374; 96375; 99285-25; G0378